=== PATIENT | female | born 1935 | race Caucasian/White ===

== ENCOUNTER 2020-05-08 10:38 | Inpatient (IN) ==
[2020-05-08 12:15] LABS: Bilirubin,Urine Negative (Negative); Blood, Urine Moderate mg/dL (Negative); Glucose,Urine (UA) Negative (Negative); Hyaline Casts,Urine 3 /LPF (0-3); Ketones,Urine Negative (Negative); Mucus,Urine Occasional /LPF (Occasional); Nitrite,Urine Negative (Negative); Protein,Urine Negative; RBC,Urine 12 /HPF (0-4); Squamous Epithelial Cell,Urine Occasional /HPF (0-10); Urine Appearance CLEAR (Clear); Urine Color Yellow (Yellow); Urine Specific Gravity 1.014 (1.001-1.035); Urine Urobilinogen < 2.0 EU/DL (0.2-1.0); WBC,Urine 3 /HPF (0-6)
[2020-05-08 12:39] LABS: Basophils % 0.3 % (0.0-0.8); Eosinophils # 0.1 10*3/uL (0.0-0.87); Eosinophils % 0.9 % (0.00-10.9); Hemoglobin 16.1 GM/DL (12.0-16.0); Immature Granulocytes % 0.6 %; Immature Granulocytes Absolute 0.06 #; Lymphocytes # 1.5 10*3/uL (1.4-4.0); Lymphocytes % 14.7 % (21.3-54.2); Mean Corpuscular HGB Conc 34.3 GM/DL (32-36); Mean Corpuscular Volume 89.4 FL (87-102); Mean Platelet Volume 11.7 FL (9.6-12.0); Neutrophils % 76.5 % (38.7-73.9); Platelet Count 305 T/CUMM (130-400); Red Blood Count 5.26 MC/CUMM (3.8-5.5); Red Cell Distribution Width 14.6 % (9.3-17.3); White Blood Count 10.3 T/CUMM (4-12)
[2020-05-08 13:19] LABS: Albumin 2.8 G/DL (3.4-5.0); Bilirubin,Total 2.1 MG/DL (0.2-1.0); Calcium 9.4 MG/DL (8.5-10.1); Osmolality,Calculated 275.7 MOS/KG (273-304); Total Protein 7.1 G/DL (6.4-8.3)
[2020-05-08] MEDS ORDERED: LEVOFLOXACIN INJ 500 MG in PREMIX 1 EACH IV STA (13:41)
[2020-05-08] MEDS ORDERED: POTASSIUM CHLORIDE 20 MEQ TABLET PO STA ×2 (13:43→14:35)
[2020-05-08 13:45] LABS: Lymphocytes 5 % (20-55); Platelet Estimate Normal; Polychromasia Slight; Segmented Neutrophils 89 % (50-85); Total Cells Counted 100
[2020-05-08] MEDS ORDERED: ALBUTEROL 2.5 MG/3 ML NEB RESP TX PRN (14:33)
[2020-05-08] MEDS ORDERED: POTASSIUM CHLORIDE RIDER 10 MEQ in PREMIX 1 EACH IV PRN (14:36)
[2020-05-08] MEDS ORDERED: MAGNESIUM SULF RIDER 4 GM in PREMIX 1 EACH IV PRN (14:36)
[2020-05-08] MEDS ORDERED: DOCUSATE SODIUM 100 MG CAPSULE PO PRN (14:37)
[2020-05-08] MEDS ORDERED: ZALEPLON 5 MG CAPSULE PO PRN (14:37)
[2020-05-08] MEDS ORDERED: SIMETHICONE CHEW 125 MG TABLET PO PRN (14:37)
[2020-05-08] MEDS ORDERED: hydrALAZINE 20 MG/1 ML VIAL IV PRN (14:37)
[2020-05-08] MEDS ORDERED: ONDANSETRON 4 MG/2 ML VIAL IV PRN (14:37)
[2020-05-08] MEDS ORDERED: GLUCAGON 1 MG VIAL IM PRN (14:37)
[2020-05-08] MEDS ORDERED: BISACODYL 5 MG TABLET PO PRN (14:37)
[2020-05-08] MEDS ORDERED: DEXTROSE 50% 25 GM/50 ML VIAL IV PRN (14:37)
[2020-05-08] MEDS ORDERED: LACTULOSE 20 GM/30 ML UDCUP PO PRN (14:37)
[2020-05-08] MEDS ORDERED: ACETAMINOPHEN 325 MG TABLET PO PRN (14:37)
[2020-05-08] MEDS: cefTRIAXone 1,000 MG in SYRINGE 1 EACH IV SCH (15:15)
[2020-05-08] MEDS ORDERED: HALOPERIDOL 5 MG/ML AMP IV ONE (18:30)
[2020-05-08] MEDS ORDERED: SODIUM CHLORIDE 0.9% 250 ML IV ONE (18:30)
[2020-05-08] MEDS ORDERED: METOPROLOL TARTRATE 5 MG/5 ML VIAL IV PRN (19:04)
[2020-05-08] MEDS: ALBUTEROL/IPRATROPIUM 3 ML NEB RESP TX SCH (19:12)
[2020-05-08] MEDS: MAGNESIUM SULF RIDER 2 GM in PREMIX 1 EACH IV PRN (19:14)
[2020-05-08] MEDS: guaiFENesin/DM ER 600-30 MG TABLET PO SCH (21:23)
[2020-05-08] MEDS: ENOXAPARIN 80 MG/0.8 ML SYRINGE SUBCUT SCH (21:23)
[2020-05-08] MEDS: POTASSIUM CHLORIDE INJ 40 MEQ, SODIUM CHLORIDE 23.4% CONC INJ 38.5 MEQ in STERILE WATER... IV SCH (21:39)
[2020-05-09] MEDS: ALBUTEROL/IPRATROPIUM 3 ML NEB RESP TX SCH ×4 (00:10→19:52)
[2020-05-09 02:55] LABS: Basophils % 0.3 % (0.0-0.8); Eosinophils % 0.3 % (0.00-10.9); Hematocrit 44.3 VOL% (35.7-47.0); Immature Granulocytes % 0.3 %; Immature Granulocytes Absolute 0.04 #; Lymphocytes # 1.4 10*3/uL (1.4-4.0); Lymphocytes % 11.9 % (21.3-54.2); Mean Corpuscular HGB Conc 33.9 GM/DL (32-36); Mean Corpuscular Volume 89.9 FL (87-102); Mean Platelet Volume 11.4 FL (9.6-12.0); Monocytes % 7.8 % (1.7-12.7); Neutrophils % 79.4 % (38.7-73.9); Platelet Count 297 T/CUMM (130-400); Red Blood Count 4.93 MC/CUMM (3.8-5.5); Red Cell Distribution Width 14.7 % (9.3-17.3)
[2020-05-09 03:28] LABS: Albumin 2.5 G/DL (3.4-5.0); Bilirubin,Total 1.8 MG/DL (0.2-1.0); Calcium 8.7 MG/DL (8.5-10.1); Osmolality,Calculated 276.7 MOS/KG (273-304); Risk Ratio 2.53; Thyroid Stimulating Hormone 1.51 uIU/ml (0.358-3.74); Total Protein 6.4 G/DL (6.4-8.3); VLDL CHOLESTEROL 15.4 MG/DL
[2020-05-09 04:05] LABS: Eosinophils 1 % (0-10); Lymphocytes 8 % (20-55); Microcytosis 1+; Platelet Estimate Normal; Segmented Neutrophils 85 % (50-85); Total Cells Counted 100
[2020-05-09 04:06] LABS: Polychromasia Slight
[2020-05-09] MEDS ORDERED: SODIUM CHLORIDE 0.9% 500 ML IV ONE (06:53)
[2020-05-09 07:10] LABS: ABG Base Excess 0.5 MMOL/L (-2.5-2.5); ABG HCO3 22.6 MMOL/L (20-26); ABG Oxygen Saturation 94.4 % (95-100); ABG PCO2 29.5 MM HG (35-48); ABG PH 7.502 (7.35-7.45); ABG PO2 69.5 MM HG (80-95); ABG TCO2 23.5 MMOL/L (23-27); Allen Test Positive; Pt O2 Delivery Device Room Air
[2020-05-09] MEDS: METOPROLOL TARTRATE 50 MG TABLET PO SCH ×2 (09:45→21:45)
[2020-05-09] MEDS: ENOXAPARIN 80 MG/0.8 ML SYRINGE SUBCUT SCH ×2 (09:45→21:46)
[2020-05-09] MEDS: guaiFENesin/DM ER 600-30 MG TABLET PO SCH ×2 (09:45→21:45)
[2020-05-09] MEDS: PANTOPRAZOLE 40 MG TABLET PO SCH (09:45)
[2020-05-09] MEDS: ASPIRIN EC 81 MG TABLET PO SCH (09:45)
[2020-05-09] MEDS: AZITHROMYCIN INJ 500 MG in SODIUM CHLORIDE 0.9% 250 ML IV SCH (10:44)
[2020-05-09] MEDS: POTASSIUM CHLORIDE INJ 40 MEQ, SODIUM CHLORIDE 23.4% CONC INJ 38.5 MEQ in STERILE WATER... IV SCH (16:33)
[2020-05-09] MEDS: VANCOMYCIN INJ 1,000 MG in SODIUM CHLORIDE 0.9% 250 ML IV SCH (16:33)
[2020-05-09] MEDS: cefTRIAXone 1,000 MG in SYRINGE 1 EACH IV SCH (16:34)
[2020-05-10] MEDS: ALBUTEROL/IPRATROPIUM 3 ML NEB RESP TX SCH ×4 (00:20→18:42)
[2020-05-10] MEDS: POTASSIUM CHLORIDE INJ 40 MEQ, SODIUM CHLORIDE 23.4% CONC INJ 38.5 MEQ in STERILE WATER... IV SCH (05:08)
[2020-05-10 05:55] LABS: Basophils % 0.4 % (0.0-0.8); Eosinophils # 0.2 10*3/uL (0.0-0.87); Eosinophils % 2.1 % (0.00-10.9); Hematocrit 38.4 VOL% (35.7-47.0); Hemoglobin 12.7 GM/DL (12.0-16.0); Immature Granulocytes % 0.5 %; Immature Granulocytes Absolute 0.04 #; Lymphocytes # 1.8 10*3/uL (1.4-4.0); Lymphocytes % 21.8 % (21.3-54.2); Mean Corpuscular HGB Conc 33.1 GM/DL (32-36); Mean Corpuscular Volume 90.4 FL (87-102); Monocytes % 10.5 % (1.7-12.7); Neutrophils % 64.7 % (38.7-73.9); Platelet Count 265 T/CUMM (130-400); Red Blood Count 4.25 MC/CUMM (3.8-5.5); Red Cell Distribution Width 14.5 % (9.3-17.3); White Blood Count 8.3 T/CUMM (4-12)
[2020-05-10 06:27] LABS: Albumin 2.1 G/DL (3.4-5.0); Bilirubin,Total 1.6 MG/DL (0.2-1.0); Calcium 7.8 MG/DL (8.5-10.1); Osmolality,Calculated 272.8 MOS/KG (273-304); Thyroid Stimulating Hormone 1.3 uIU/ml (0.358-3.74); Total Protein 5.7 G/DL (6.4-8.3)
[2020-05-10] MEDS: VANCOMYCIN INJ 1,000 MG in SODIUM CHLORIDE 0.9% 250 ML IV SCH (08:17)
[2020-05-10] MEDS: METOPROLOL TARTRATE 50 MG TABLET PO SCH ×2 (08:18→20:45)
[2020-05-10] MEDS: ASPIRIN EC 81 MG TABLET PO SCH (08:18)
[2020-05-10] MEDS: ENOXAPARIN 80 MG/0.8 ML SYRINGE SUBCUT SCH ×2 (08:18→20:45)
[2020-05-10] MEDS: guaiFENesin/DM ER 600-30 MG TABLET PO SCH ×2 (08:18→20:45)
[2020-05-10] MEDS: PANTOPRAZOLE 40 MG TABLET PO SCH (08:18)
[2020-05-10] MEDS: AZITHROMYCIN INJ 500 MG in SODIUM CHLORIDE 0.9% 250 ML IV SCH (10:20)
[2020-05-10] MEDS: SODIUM CHLORIDE 0.45% 1,000 ML IV SCH (10:21)
[2020-05-10] MEDS: cefTRIAXone 1,000 MG in SYRINGE 1 EACH IV SCH (15:52)
[2020-05-11] MEDS: ALBUTEROL/IPRATROPIUM 3 ML NEB RESP TX SCH ×4 (00:10→19:08)
[2020-05-11] MEDS: VANCOMYCIN INJ 1,000 MG in SODIUM CHLORIDE 0.9% 250 ML IV SCH ×2 (02:59→20:58)
[2020-05-11 05:26] LABS: Basophils % 0.3 % (0.0-0.8); Eosinophils # 0.2 10*3/uL (0.0-0.87); Eosinophils % 2.6 % (0.00-10.9); Hematocrit 39.1 VOL% (35.7-47.0); Hemoglobin 12.7 GM/DL (12.0-16.0); Immature Granulocytes % 0.4 %; Immature Granulocytes Absolute 0.03 #; Lymphocytes # 1.6 10*3/uL (1.4-4.0); Lymphocytes % 22.2 % (21.3-54.2); Mean Corpuscular HGB Conc 32.5 GM/DL (32-36); Mean Corpuscular Volume 91.6 FL (87-102); Mean Platelet Volume 11.8 FL (9.6-12.0); Neutrophils % 63.5 % (38.7-73.9); Platelet Count 271 T/CUMM (130-400); Red Blood Count 4.27 MC/CUMM (3.8-5.5); Red Cell Distribution Width 14.3 % (9.3-17.3); White Blood Count 7.2 T/CUMM (4-12)
[2020-05-11 06:06] LABS: Alanine Aminotransferase < 9 U/L (13-56); Albumin 2.1 G/DL (3.4-5.0); Alkaline Phosphatase 41 U/L (45-117); Aspartate Amino Transferase 16 U/L (0-37); Blood Urea Nitrogen 11 MG/DL (7-18); Calcium 8.2 MG/DL (8.5-10.1); Estimated Glom Filtration Rate 73 ML/MIN; Glucose 91 MG/DL (74-106); Osmolality,Calculated 273.7 MOS/KG (273-304); Total Protein 5.7 G/DL (6.4-8.3)
[2020-05-11] MEDS ORDERED: FUROSEMIDE 20 MG/2 ML VIAL IV ONE (09:01)
[2020-05-11] MEDS: guaiFENesin/DM ER 600-30 MG TABLET PO SCH ×2 (09:20→21:02)
[2020-05-11] MEDS: PANTOPRAZOLE 40 MG TABLET PO SCH (09:20)
[2020-05-11] MEDS: ASPIRIN EC 81 MG TABLET PO SCH (09:20)
[2020-05-11] MEDS: ENOXAPARIN 80 MG/0.8 ML SYRINGE SUBCUT SCH ×2 (09:21→21:02)
[2020-05-11] MEDS: METOPROLOL TARTRATE 50 MG TABLET PO SCH ×2 (09:21→21:02)
[2020-05-11] MEDS: AZITHROMYCIN INJ 500 MG in SODIUM CHLORIDE 0.9% 250 ML IV SCH (09:21)
[2020-05-11] MEDS: MEGESTROL 400 MG/10 ML UDCUP PO SCH ×2 (10:13→21:02)
[2020-05-11] MEDS: cefTRIAXone 1,000 MG in SYRINGE 1 EACH IV SCH (18:56)
[2020-05-12] MEDS: ALBUTEROL/IPRATROPIUM 3 ML NEB RESP TX SCH ×4 (01:44→18:59)
[2020-05-12 06:34] LABS: Basophils % 0.3 % (0.0-0.8); Eosinophils # 0.1 10*3/uL (0.0-0.87); Eosinophils % 1.1 % (0.00-10.9); Hematocrit 40.8 VOL% (35.7-47.0); Hemoglobin 13.6 GM/DL (12.0-16.0); Immature Granulocytes % 0.7 %; Immature Granulocytes Absolute 0.08 #; Lymphocytes # 1.5 10*3/uL (1.4-4.0); Lymphocytes % 13.7 % (21.3-54.2); Mean Corpuscular HGB Conc 33.3 GM/DL (32-36); Mean Corpuscular Volume 90.7 FL (87-102); Mean Platelet Volume 11.6 FL (9.6-12.0); Monocytes % 9.3 % (1.7-12.7); Neutrophils % 74.9 % (38.7-73.9); Platelet Count 285 T/CUMM (130-400); Red Cell Distribution Width 14.5 % (9.3-17.3); White Blood Count 10.8 T/CUMM (4-12)
[2020-05-12 07:14] LABS: Albumin 2.1 G/DL (3.4-5.0); Bilirubin,Total 1.8 MG/DL (0.2-1.0); Calcium 8.6 MG/DL (8.5-10.1); Osmolality,Calculated 280.3 MOS/KG (273-304); Thyroid Stimulating Hormone 2.93 uIU/ml (0.358-3.74); Total Protein 5.9 G/DL (6.4-8.3)
[2020-05-12] MEDS: SODIUM CHLORIDE 0.45% 1,000 ML IV SCH (07:50)
[2020-05-12] MEDS: MEGESTROL 400 MG/10 ML UDCUP PO SCH ×2 (08:37→21:21)
[2020-05-12] MEDS: guaiFENesin/DM ER 600-30 MG TABLET PO SCH ×2 (08:38→21:21)
[2020-05-12] MEDS: METOPROLOL TARTRATE 50 MG TABLET PO SCH ×2 (08:38→21:21)
[2020-05-12] MEDS: ASPIRIN EC 81 MG TABLET PO SCH (08:38)
[2020-05-12] MEDS: ENOXAPARIN 80 MG/0.8 ML SYRINGE SUBCUT SCH ×2 (08:38→21:21)
[2020-05-12] MEDS: PANTOPRAZOLE 40 MG TABLET PO SCH (08:38)
[2020-05-12] MEDS: POTASSIUM CHLORIDE 20 MEQ TABLET PO SCH ×2 (08:53→21:21)
[2020-05-12] MEDS: AZITHROMYCIN INJ 500 MG in SODIUM CHLORIDE 0.9% 250 ML IV SCH (09:08)
[2020-05-12] MEDS: cefTRIAXone 1,000 MG in SYRINGE 1 EACH IV SCH (16:09)
[2020-05-12] MEDS: VANCOMYCIN INJ 1,000 MG in SODIUM CHLORIDE 0.9% 250 ML IV SCH (16:11)
[2020-05-13] MEDS: ALBUTEROL/IPRATROPIUM 3 ML NEB RESP TX SCH ×4 (02:37→19:30)
[2020-05-13 06:05] LABS: Basophils # 0.1 10*3/uL (0.0-0.2); Basophils % 0.5 % (0.0-0.8); Eosinophils # 0.2 10*3/uL (0.0-0.87); Eosinophils % 2.3 % (0.00-10.9); Hematocrit 40.9 VOL% (35.7-47.0); Hemoglobin 13.2 GM/DL (12.0-16.0); Immature Granulocytes % 0.7 %; Immature Granulocytes Absolute 0.07 #; Lymphocytes # 2.3 10*3/uL (1.4-4.0); Lymphocytes % 24.3 % (21.3-54.2); Mean Corpuscular HGB Conc 32.3 GM/DL (32-36); Mean Platelet Volume 11.8 FL (9.6-12.0); Monocytes % 13.5 % (1.7-12.7); Neutrophils % 58.7 % (38.7-73.9); Platelet Count 245 T/CUMM (130-400); Red Cell Distribution Width 14.7 % (9.3-17.3); White Blood Count 9.5 T/CUMM (4-12)
[2020-05-13 06:34] LABS: Hypochromasia Slight; Microcytosis Slight; Platelet Estimate Adequate
[2020-05-13 06:40] LABS: Albumin 1.9 G/DL (3.4-5.0); Bilirubin,Total 1.2 MG/DL (0.2-1.0); Calcium 8.5 MG/DL (8.5-10.1); Osmolality,Calculated 286.8 MOS/KG (273-304); Thyroid Stimulating Hormone 2.37 uIU/ml (0.358-3.74); Total Protein 5.9 G/DL (6.4-8.3)
[2020-05-13] MEDS: ASPIRIN EC 81 MG TABLET PO SCH (09:07)
[2020-05-13] MEDS: ENOXAPARIN 80 MG/0.8 ML SYRINGE SUBCUT SCH (09:07)
[2020-05-13] MEDS: METOPROLOL TARTRATE 50 MG TABLET PO SCH ×2 (09:07→21:44)
[2020-05-13] MEDS: guaiFENesin/DM ER 600-30 MG TABLET PO SCH ×2 (09:07→21:44)
[2020-05-13] MEDS: PANTOPRAZOLE 40 MG TABLET PO SCH (09:08)
[2020-05-13] MEDS: MEGESTROL 400 MG/10 ML UDCUP PO SCH ×2 (09:08→21:44)
[2020-05-13] MEDS: VANCOMYCIN INJ 1,000 MG in SODIUM CHLORIDE 0.9% 250 ML IV SCH (09:21)
[2020-05-13] MEDS: ASCORBIC ACID 500 MG TABLET PO SCH ×2 (09:55→21:44)
[2020-05-13] MEDS: AZITHROMYCIN INJ 500 MG in SODIUM CHLORIDE 0.9% 250 ML IV SCH (11:14)
[2020-05-13] MEDS: cefTRIAXone 1,000 MG in SYRINGE 1 EACH IV SCH (14:53)
[2020-05-13] MEDS: POTASSIUM CHLORIDE INJ 40 MEQ, SODIUM CHLORIDE 23.4% CONC INJ 38.5 MEQ in STERILE WATER... IV SCH (15:10)
[2020-05-13] MEDS: APIXABAN 2.5 MG TABLET PO SCH (21:44)
[2020-05-14] MEDS: ALBUTEROL/IPRATROPIUM 3 ML NEB RESP TX SCH ×4 (00:16→19:33)
[2020-05-14] MEDS: VANCOMYCIN INJ 1,000 MG in SODIUM CHLORIDE 0.9% 250 ML IV SCH (04:12)
[2020-05-14 06:37] LABS: Basophils % 0.4 % (0.0-0.8); Eosinophils # 0.3 10*3/uL (0.0-0.87); Eosinophils % 3.1 % (0.00-10.9); Hematocrit 36.9 VOL% (35.7-47.0); Hemoglobin 12.1 GM/DL (12.0-16.0); Immature Granulocytes % 0.7 %; Immature Granulocytes Absolute 0.06 #; Lymphocytes # 2.4 10*3/uL (1.4-4.0); Lymphocytes % 28.2 % (21.3-54.2); Mean Corpuscular HGB Conc 32.8 GM/DL (32-36); Mean Corpuscular Volume 93.2 FL (87-102); Mean Platelet Volume 11.4 FL (9.6-12.0); Monocytes % 12.9 % (1.7-12.7); Neutrophils % 54.7 % (38.7-73.9); Platelet Count 222 T/CUMM (130-400); Red Blood Count 3.96 MC/CUMM (3.8-5.5); Red Cell Distribution Width 14.7 % (9.3-17.3); White Blood Count 8.4 T/CUMM (4-12)
[2020-05-14 06:49] LABS: Calcium 8.6 MG/DL (8.5-10.1)
[2020-05-14 06:53] LABS: Albumin 1.9 G/DL (3.4-5.0); Bilirubin,Total 0.8 MG/DL (0.2-1.0); Calcium 8.4 MG/DL (8.5-10.1); Osmolality,Calculated 283.1 MOS/KG (273-304); Total Protein 5.5 G/DL (6.4-8.3)
[2020-05-14 06:56] LABS: Hypochromasia 1+; Platelet Estimate Adequate
[2020-05-14 06:57] LABS: Microcytosis Slight
[2020-05-14 06:58] LABS: Ovalocytes Slight
[2020-05-14] MEDS: ASCORBIC ACID 500 MG TABLET PO SCH ×2 (09:39→20:52)
[2020-05-14] MEDS: ASPIRIN EC 81 MG TABLET PO SCH (09:39)
[2020-05-14] MEDS: guaiFENesin/DM ER 600-30 MG TABLET PO SCH ×2 (09:39→20:52)
[2020-05-14] MEDS: PANTOPRAZOLE 40 MG TABLET PO SCH (09:40)
[2020-05-14] MEDS: METOPROLOL TARTRATE 50 MG TABLET PO SCH ×2 (09:40→20:53)
[2020-05-14] MEDS: APIXABAN 2.5 MG TABLET PO SCH ×2 (09:40→20:53)
[2020-05-14] MEDS: MEGESTROL 400 MG/10 ML UDCUP PO SCH ×2 (09:40→20:52)
[2020-05-14] MEDS: AZITHROMYCIN INJ 500 MG in SODIUM CHLORIDE 0.9% 250 ML IV SCH (10:10)
[2020-05-14] MEDS ORDERED: MAGNESIUM SULF RIDER 4 GM in PREMIX 1 EACH IV PRN (11:47)
[2020-05-14] MEDS ORDERED: MAGNESIUM SULF RIDER 2 GM in PREMIX 1 EACH IV PRN (11:47)
[2020-05-14] MEDS: MAGNESIUM SULF RIDER 2 GM in PREMIX 1 EACH IV PRN (12:44)
[2020-05-14] MEDS ORDERED: TUBERCULIN SKIN TEST 0.1 ML SYRINGE INTRADERM ONE (13:08)
[2020-05-14] MEDS: cefTRIAXone 1,000 MG in SYRINGE 1 EACH IV SCH (17:02)
[2020-05-15] MEDS: ALBUTEROL/IPRATROPIUM 3 ML NEB RESP TX SCH ×3 (00:40→15:09)
[2020-05-15 05:17] LABS: Basophils % 0.4 % (0.0-0.8); Eosinophils # 0.2 10*3/uL (0.0-0.87); Eosinophils % 2.8 % (0.00-10.9); Hematocrit 37.5 VOL% (35.7-47.0); Hemoglobin 12.2 GM/DL (12.0-16.0); Immature Granulocytes % 0.8 %; Immature Granulocytes Absolute 0.06 #; Lymphocytes # 2.3 10*3/uL (1.4-4.0); Lymphocytes % 29.1 % (21.3-54.2); Mean Corpuscular HGB Conc 32.5 GM/DL (32-36); Mean Corpuscular Volume 92.1 FL (87-102); Mean Platelet Volume 11.7 FL (9.6-12.0); Monocytes % 12.8 % (1.7-12.7); Neutrophils % 54.1 % (38.7-73.9); Platelet Count 233 T/CUMM (130-400); Red Blood Count 4.07 MC/CUMM (3.8-5.5); Red Cell Distribution Width 14.6 % (9.3-17.3); White Blood Count 7.9 T/CUMM (4-12)
[2020-05-15 05:40] LABS: Calcium 8.5 MG/DL (8.5-10.1); Osmolality,Calculated 278.4 MOS/KG (273-304)
[2020-05-15] MEDS: ASCORBIC ACID 500 MG TABLET PO SCH (09:35)
[2020-05-15] MEDS: APIXABAN 2.5 MG TABLET PO SCH (09:35)
[2020-05-15] MEDS: guaiFENesin/DM ER 600-30 MG TABLET PO SCH (09:35)
[2020-05-15] MEDS: METOPROLOL TARTRATE 50 MG TABLET PO SCH (09:35)
[2020-05-15] MEDS: ASPIRIN EC 81 MG TABLET PO SCH (09:35)
[2020-05-15] MEDS: PANTOPRAZOLE 40 MG TABLET PO SCH (09:35)
[2020-05-15] MEDS: AZITHROMYCIN INJ 500 MG in SODIUM CHLORIDE 0.9% 250 ML IV SCH (09:42)
[2020-05-15] MEDS: MEGESTROL 400 MG/10 ML UDCUP PO SCH (10:13)
[2020-05-15] MEDS: cefTRIAXone 1,000 MG in SYRINGE 1 EACH IV SCH (15:08)
[2020-05-15 16:05] VITALS: BP 114/67
== END 2020-05-15 16:40 | DRG 193 ==
LOC: EDBD → EDUNIT# → N.EDINP 10:38 → N.ED 10:38 → N.EDINP 16:42 → N.TELEN 16:45 → SUATTDRO 05-09 09:16
PROVIDERS: ADMIT Hospitalist; ATTEND Internal Medicine